=== PATIENT | female | born 1960 | race Two or more races ===

== ENCOUNTER → 2017-02-05 | Outpatient (CLI) | payer OTHER ==
[~2017-02-05] MED LIST: CYCLOBENZAPRINE5 MG PO; IBUPROFEN PO; METFORMIN PO; MONTELUKAST SOD10 MG PO; PROTONIX PO; ZESTORETIC 20-1 EAC1 PO
--- NOTE | ~2017-02-05 | CR63 ---
[facility] A Service of [facility] & [facility] RADIOLOGY TEXT RESULTS PATIENT: LESLEY ESTEBAN LOCATION: CRA : 60 UNIT #: [id number] AGE: [address]: NAOMI BOSWELL APRN SEX: F ORDER DR: [id number] [facility] [address] [place], [place] [address] [id number] O MR#: [id number] Acc #: [id number] NAME: LESLEY ESTEBAN : 1960 SEX: F STUDY DATE/TIME: 02/05/2017 16:51 UNIT: [facility] ROOM: STUDY DESCRIPTION: CR Chest 2 View Attending Physician: Naomi Boswell Referring Physician: Naomi Boswell Ordering Physician: Sara Boswell M.D. Primary Care Physician: Naomi Boswell MEDICAL IMAGING REPORT This report is preliminary unless electronic signature is present EXAM Chest 02/05/2017. [facility] HISTORY 56-year-old woman followup pneumonia. Cough and congestion. History of diabetes and high blood pressure. COMPARISON: Chest none FINDINGS PA and lateral chest views show normal cardiac size and configuration. Hilar structures and mediastinal contours are preserved. There appears to be minimal residual right lower lobe infiltrate. I have no previous comparison studies. Left lung is clear. Costophrenic angles are preserved. IMPRESSION Probable resolving pneumonia with minimal right lower lobe infiltrate present. No comparison images. Dictated by... Jovan Lovett M.D. THIS IS AN ELECTRONICALLY VERIFIED REPORT Jovan Lovett M.D. at 02/06/2017 2:36 PM FELIPE/helen TD: 02/06/2017 13:59 JOB #: [id number] MEDICAL IMAGING REPORT [facility] A Service of [facility] & [facility] RADIOLOGY TEXT RESULTS PATIENT: LESLEY ESTEBAN LOCATION: [facility] : 60 UNIT #: [id number] AGE: [address]: NAOMI BOSWELL APRN SEX: F ORDER DR: Page 1 of 1 COPY
== END | disposition home or self-care (01) ==
LOC: CRAD 16:21
DX: J18.9 Pneumonia, unspecified organism (principal)
CPT/HCPCS: 71020

== ENCOUNTER → 2017-03-07 | Outpatient (CLI) | payer OTHER ==
--- NOTE | ~2017-03-07 | CR63 ---
[facility] A Service of [facility] & [facility] RADIOLOGY TEXT RESULTS PATIENT: LESLEY OTOOLE LOCATION: [facility] : 60 UNIT #: [id number] AGE: [address]: RACHEL BOSWELL APRN SEX: F ORDER DR: [id number] [facility] [address] [place], [place] [address] [id number] O MR#: [id number] Acc #: [id number] NAME: LESLEY OTOOLE : 1960 SEX: F STUDY DATE/TIME: 03/07/2017 11:03 UNIT: [facility] ROOM: STUDY DESCRIPTION: CR Chest 2 View Attending Physician: Sara Boswell M.D. Referring Physician: Sara Boswell M.D. Ordering Physician: Sara Boswell M.D. Primary Care Physician: Sara Boswell M.D. MEDICAL IMAGING REPORT This report is preliminary unless electronic signature is present EXAM Chest, PA and lateral, 03/07/2017. HISTORY Shortness of breath and cough for 15 days with shortness of breath. Follow up pneumonia. Benign essential hypertension. FINDINGS PA and lateral examination of the chest upright shows a good expansion of the parenchyma with a normal distribution of the pulmonary vascularity. There is no indication of congestion, effusion, infiltrate, tumor, or nodular density. The pleural reflections and diaphragmatic contours are normal. The cardiac silhouette and mediastinal anatomy is within normal limits. IMPRESSION Normal PA and lateral chest. Dictated by... Umberto Mackay M.D. THIS IS AN ELECTRONICALLY VERIFIED REPORT Umberto Mackay M.D. at 03/08/2017 7:28 AM TAI/iban TD: 03/07/2017 20:16 JOB #: [id number] MEDICAL IMAGING REPORT Page 1 of 1 COPY
== END | disposition home or self-care (01) ==
LOC: CRAD 10:54
DX: J18.9 Pneumonia, unspecified organism (principal)
CPT/HCPCS: 71020